=== PATIENT | female | born 1950 | race Caucasian/White ===

== ENCOUNTER → 2016-06-22 | Outpatient (CLI) | payer MEDICARE ==
[2016-06-03 11:00] VITALS: BP 170/91
[~2016-06-22] MED LIST: AMOX1TAB61 PO; FLUT1DIS5 IH; GUAI5SYR PO; IPRA4AER IH; LINE600T PO
--- NOTE | 2016-06-22 12:04 | RAD ---
Indication follow-up pneumonia. PA and lateral views of the chest were obtained. Comparison is made to an examination 06/01/2016. Previously demonstrated infiltrate in the left lower lobe, compatible with pneumonia, has improved substantially. Some modest residual volume loss persists but a new finding in the chest is not seen. The right lung is clear. The heart and pulmonary vessels are normal. There is no pleural fluid or pneumothorax. There are degenerative changes in the thoracic spine. IMPRESSION: Partial clearing of infiltrate, compatible with pneumonia, seen previously in the left lower lobe.
== END | disposition home or self-care (01) ==
LOC: RAD 11:05
PROVIDERS: ATTEND Internal Medicine Critical Care Medicine
DX: J18.9 Pneumonia, unspecified organism (principal)
CPT/HCPCS: 71020

== ENCOUNTER 2017-03-20 22:48 | Inpatient (IN) | payer BC ==
[~2017-03-20] VITALS: Ht 157.5 cm; Wt 113.0 kg
--- NOTE | 2017-03-20 23:01 | PHYS DOC ---
Past Medical History Past Medical History: Endometriosis Past Surgical History: Other Additional Past Surgical Histo: tumor removed from arm, tumor removed from neck , endometriosis ablation Alcohol Use: Rarely Drug Use: None Adult General Chief Complaint Chief Complaint: SHORTNESS OF BREATH HPI HPI 66-year-old female with history of COPD presenting to the emergency department today with shortness of breath. She has had shortness of breath over the past 24 -48 hours. She reports recently having her flu vaccine. Her shortness of breath has progressively gotten worse. Tonight her noticed she was having a difficult time breathing and brought her in for further evaluation. Worse with exertion. Alleviated with rest. She denies hemoptysis, unilateral leg swelling, recent immobilization or surgery. She denies chest pain. She denies headache. Review of systems is negative for trauma pain nausea vomiting diaphoresis. Positive for shortness of breath and dry nonproductive cough. All other review of systems is negative unless otherwise noted in history of present illness. ED course: 66-year-old female presenting with shortness of breath. In triage patient was noticed to be tachycardic and hypoxic. She was placed on nasal cannula. IV established. On pertinent examination the patient has wheezing bilaterally with prolonged respiratory phase. The patient was administered IV corticosteroids. Also duo neb was given. Blood work obtained along with EKG and chest x-ray. EKG reviewed by myself shows sinus rhythm with a tachycardic rate. ST segments congruent. Not suggestive of ACS. Chest x-ray reviewed by myself and compared to previous on June 222016. No obvious infiltrate or pneumothorax. Blood work obtained and reviewed. Patient was given IV fluids which improved her tachycardia. CT angiogram negative for acute pulmonary embolus him. Likely COPD exacerbation. Patient admitted to the hospital for hypoxia for further evaluation workup and care to Dr. dunn.I have assessed this patient clinically and believe that their condition requires an admission to the hospital. After consulting the admitting physician about this case, they have asked that I admit this patient to their service as an inpatient based on the clinical presentation and my impression. Review of Systems Review of Systems SEE ABOVE. Current Medications Current Medications Current Medications Medications (Trade) Dose Ordered Sig/Laxmi Start Time Stop Time Status Last Admin Dose Admin Albuterol/ Ipratropium (Duoneb) 3 ml 1X ONCE 03/20/17 23:30 03/20/17 23:31 DC 03/20/17 22:59 3 ML Info (Do NOT chart on this entry -- for MONITORING) 1 each PRN DAILY PRN 03/20/17 23:45 03/22/17 23:44 Iohexol (Omnipaque 300 Mg/ml) 60 ml 1X ONCE 03/21/17 00:30 03/21/17 00:31 DC 03/21/17 00:17 60 ML Labetalol HCl (Normodyne) 20 mg 1X ONCE 03/21/17 01:00 03/21/17 01:01 DC 03/21/17 00:55 20 MG Methylprednisolone Sodium Succinate (SOLU-Medrol 125MG VIAL) 125 mg 1X ONCE 03/20/17 23:30 03/20/17 23:31 DC 03/20/17 23:27 125 MG Sodium Chloride 1,000 ml @ 100 mls/hr Q10H 03/21/17 01:33 03/22/17 01:32 03/21/17 03:32 100 MLS/HR Allergies Allergies Allergies Coded Allergies Type Severity Reaction Last Updated Verified Sulfa (Sulfonamide Antibiotics) Allergy Intermediate 05/31/16 Yes acetaminophen Allergy Intermediate 05/31/16 Yes hydrocodone Allergy Intermediate Makes her itch 05/31/16 Yes Physical Exam Physical Exam SEE ABOVE Constitutional: Well developed, well nourished, mild increased work of breathing. nontoxic. alert and responsive. HENT: Normocephalic, atraumatic, bilateral external ears normal, oropharynx moist, nose normal. [] Eyes: PERRLA, EOMI, conjunctiva normal, no discharge. [] Neck: Normal range of motion, no tenderness, supple, no stridor. [] Cardiovascular:Heart rate regular rhythm, no murmur [] Lungs & Thorax: SEE ABOVE Abdomen: Bowel sounds normal, soft, no tenderness, no masses, no pulsatile masses. [] Skin: Warm, dry, no erythema, no rash. [] Back: No tenderness, no CVA tenderness. [] Extremities: No tenderness, no cyanosis, no clubbing, ROM intact, no edema. [] Neurologic: Alert and oriented X 3, normal motor function, normal sensory function, no focal deficits noted. [] Psychologic: Affect normal, judgement normal, mood normal. [] Current Patient Data Vital Signs Vital Signs Date Time Temp Pulse Resp B/P (MAP) Pulse Ox O2 Delivery O2 Flow Rate FiO2 03/21/17 00:55 109 210/77 03/20/17 23:00 96 Nasal Cannula 3.0 03/20/17 22:54 98.6 24 98.6 Lab Values Laboratory Tests Test 03/20/17 23:00 White Blood Count 11.3 x10^3/uL (4.0-11.0) H Red Blood Count 4.72 x10^6/uL (3.50-5.40) Hemoglobin 14.9 g/dL (12.0-15.5) Hematocrit 45.2 % (36.0-47.0) Mean Corpuscular Volume 96 fL (79-100) Mean Corpuscular Hemoglobin 32 pg (25-35) Mean Corpuscular Hemoglobin Concent 33 g/dL (31-37) Red Cell Distribution Width 12.9 % (11.5-14.5) Platelet Count 258 x10^3/uL (140-400) Neutrophils (%) (Auto) 95 % (31-73) H Lymphocytes (%) (Auto) 3 % (24-48) L Monocytes (%) (Auto) 2 % (0-9) Eosinophils (%) (Auto) 0 % (0-3) Basophils (%) (Auto) 0 % (0-3) Neutrophils # (Auto) 10.7 x10^3uL (1.8-7.7) H Lymphocytes # (Auto) 0.3 x10^3/uL (1.0-4.8) L Monocytes # (Auto) 0.2 x10^3/uL (0.0-1.1) Eosinophils # (Auto) 0.0 x10^3/uL (0.0-0.7) Basophils # (Auto) 0.0 x10^3/uL (0.0-0.2) Segmented Neutrophils % 83 % (35-66) H Band Neutrophils % 14 % (0-9) H Lymphocytes % 1 % (24-48) L Monocytes % 1 % (0-10) Eosinophils % 1 % (0-5) Platelet Estimate Adequate (ADEQUATE) Sodium Level 139 mmol/L (136-145) Potassium Level 3.7 mmol/L (3.5-5.1) Chloride Level 101 mmol/L (98-107) Carbon Dioxide Level 29 mmol/L (21-32) Anion Gap 9 (6-14) Blood Urea Nitrogen 20 mg/dL (7-20) Creatinine 1.0 mg/dL (0.6-1.0) Estimated GFR (Cockcroft-Gault) 55.6 Glucose Level 165 mg/dL (70-99) H Lactic Acid Level 1.7 mmol/L (0.4-2.0) Calcium Level 9.0 mg/dL (8.5-10.1) Total Bilirubin 0.4 mg/dL (0.2-1.0) Direct Bilirubin 0.1 mg/dL (0.0-0.2) Aspartate Amino Transferase (AST) 23 U/L (15-37) Alanine Aminotransferase (ALT) 26 U/L (14-59) Alkaline Phosphatase 86 U/L (46-116) Troponin I Quantitative < 0.017 ng/mL (0.000-0.055) WH-Fdu-F-Type Natriuretic Peptide 105 pg/mL (0-124) Total Protein 7.2 g/dL (6.4-8.2) Albumin 3.8 g/dL (3.4-5.0) Lipase 357 U/L (73-393) Laboratory Tests 03/20/17 23:00 Laboratory Tests 03/20/17 23:00 EKG EKG [] Radiology/Procedures Radiology/Procedures [] Course & Med Decision Making Course & Med Decision Making Pertinent Labs and Imaging studies reviewed. (See chart for details) [] Dragon Disclaimer Dragon Disclaimer This electronic medical record was generated, in whole or in part, using a voice recognition dictation system. Departure Departure Impression: Primary Impression: Hypoxia Additional Impressions: Tachycardia COPD exacerbation Disposition: ADMITTED INPATIENT Admitting Physician: Deepthi Dunn Condition: STABLE Referrals: JANINA RODRIGUEZ MD (PCP) Problem Qualifiers AMBERLY LOPEZ MD Mar 20, 2017 23:01
[2017-03-20 23:14] LABS: BASO % 0 % (0-3); EOS % 0 % (0-3); HEMATOCRIT 45.2 % (36.0-47.0); HEMOGLOBIN 14.9 g/dL (12.0-15.5); LYMPH # 0.3 x10^3/uL (1.0-4.8); LYMPH % 3 % (24-48); MEAN CORPUSCULAR HEMOGLOBIN 32 pg (25-35); MEAN CORPUSCULAR HGB CONC 33 g/dL (31-37); MEAN CORPUSCULAR VOLUME 96 fL (79-100); MONO % 2 % (0-9); NEUT % 95 % (31-73); PLATELET COUNT 258 x10^3/uL (140-400); RED BLOOD COUNT 4.72 x10^6/uL (3.50-5.40); RED CELL DISTRIBUTION WIDTH 12.9 % (11.5-14.5); WHITE BLOOD COUNT 11.3 x10^3/uL (4.0-11.0)
[2017-03-20 23:21] LABS: GFR 55.6; POTASSIUM 3.7 mmol/L (3.5-5.1)
[2017-03-20 23:27] LABS: ALBUMIN 3.8 g/dL (3.4-5.0); DIRECT BILIRUBIN 0.1 mg/dL (0.0-0.2); TOTAL BILIRUBIN 0.4 mg/dL (0.2-1.0); TOTAL PROTEIN 7.2 g/dL (6.4-8.2)
[2017-03-20] MEDS ORDERED: methylPREDNISolone SOD SUCC PF 125 MG/2 ML VIAL. IV ONE (23:30)
[2017-03-20] MEDS ORDERED: IPRATRPIUM/ALBUTEROL 0.5/2.5MG 3 ML NEBU. NEB ONE (23:30)
[2017-03-20] MEDS ORDERED: IV NORMAL SALINE 500ML BAG 500 ML IV ONE ×2 (23:30→23:45)
[2017-03-20] MEDS ORDERED: CONTRAST GIVEN MC PRN (23:45)
[2017-03-21] MEDS ORDERED: IOHEXOL 300 MG/ML 100ML VIAL. IV ONE (00:30)
[2017-03-21 00:31] LABS: % EOS 1 % (0-5)
[2017-03-21 00:32] LABS: PLT ESTIMATE ADEQUATE (ADEQUATE)
--- NOTE | 2017-03-21 00:57 | EKG ---
[facility] [address] [place] [address] Test Date: 2017-03-20 Test Time: 23:00:32 Pat Name: LAURO SCHULTZ Department: Room: Gender: F Story Analyst: : 1950 Requested By: AMBERLY LOPEZ Order Number: [id number] Reading MD: Rahul Harrison Measurements Intervals [place] Rate: 117 P: 90 [place]: 132 QRS: 65 QRSD: 80 T: 34 QT: 320 QTc: 451 Interpretive Statements SINUS TACHYCARDIA QRS(T) CONTOUR ABNORMALITY CONSIDER ANTEROSEPTAL MYOCARDIAL DAMAGE POSSIBLY ABNORMAL ECG Electronically Signed On 03-27-2017 14:30:49 FEED PREPARATION OPERATOR by Rahul Harrison
[2017-03-21] MEDS ORDERED: LABETALOL 20 MG/4 ML DISP.SYRIN. IVP ONE (01:00)
--- NOTE | 2017-03-21 01:17 | RAD ---
INDICATION: EVAL FOR PE, SHORT OF BREATH COMPARISON: None. TECHNIQUE: Axial CT images obtained through the chest. Intravenous contrast utilized. Angiogram 3D images processed per protocol. One or more of the following individualized dose reduction techniques were utilized for this examination: 1. Automated exposure control; 2. Adjustment of the mA and/or kV according to patient size; 3. Use of iterative reconstruction technique. FINDINGS: Linear opacity left lung, could be atelectasis or scarring. There are couple of sub-4 mm right lung pulmonary nodules. No evidence of pneumothorax. Mild bronchiectasis. Mild peribronchial thickening in portion of lung. Partially visualized liver appears prominent in size. Partially visualized masslike structure in the left renal region versus dysmorphic appearance of the left kidney. Structure measures up to 52 mm but only partially seen. Mild to moderate calcific atherosclerosis. Portion of ascending thoracic aorta is obscured by motion but no definite aneurysm or dissection flap seen in visualized portions of aorta. Mild a prominent lymph node precarinal region measuring up to 11 mm short axis. Degenerative changes the spine. No embolus in the main pulmonary arteries. Limited peripherally. IMPRESSION: 1. No central pulmonary embolus. 2. There are some sub-4 mm pulmonary nodules. There are also some borderline enlarged mediastinal and hilar lymph nodes. Follow-up CT could be obtained in a few months to ensure no growth 3. Mild peribronchial thickening. Cannot exclude causes such as bronchitis. 4. At partially visualized abdomen and there is either dysmorphic changes the left kidney or a mass within the region partially visualized. Nonemergent CT, MRI or ultrasound renal protocol should be obtained to further evaluate for a mass in the area. Electronically signed by: Panchito Molina MD (03/21/2017 1:14 AM) [id number]
[2017-03-21] MEDS ORDERED: ONDANSETRON PF 4 MG/2 ML VIAL. IV PRN ×2 (01:45→09:15)
[2017-03-21 03:11] LABS: BILIRUBIN,URINE NEGATIVE (NEG); GLUCOSE,URINE NEGATIVE (NEG); NITRITE,URINE NEGATIVE (NEG); PH,URINE 5.5; PROTEIN,URINE NEGATIVE (NEG-TRACE); UROBILINOGEN,URINE 0.2 mg/dL (0.2 mg/dL)
[2017-03-21 03:23] LABS: BACTERIA,URINE FEW /HPF (0-FEW); RBC,URINE OCC /HPF (0-2); SQUAMOUS EPITHELIAL CELL,UR FEW /LPF
[2017-03-21 03:31] VITALS: BP 135/60
[2017-03-21] MEDS: IV NORMAL SALINE 1000ML BAG 1,000 ML IV SCH ×2 (03:32→11:33)
[2017-03-21] MEDS ORDERED: IBUPROFEN 400 MG TABLET. PO PRN (06:00)
[2017-03-21 07:30] VITALS: BP 142/69
--- NOTE | 2017-03-21 07:32 | RAD ---
Chest x-ray Indication: Shortness of breath for 2 weeks. Technique: Portable AP upright chest x-ray Comparison: 06/22/2016 Findings: Heart is normal in size. Lungs are clear. No pneumothorax or pleural effusion. Visualized bony thorax is within normal limits. Degenerative changes in the thoracic spine. Impression: No acute cardiopulmonary process.
[2017-03-21] MEDS: IPRATRPIUM/ALBUTEROL 0.5/2.5MG 3 ML NEBU. NEB SCH ×2 (07:42→11:26)
[2017-03-21] MEDS ORDERED: LABETALOL 20 MG/4 ML DISP.SYRIN. IVP PRN (09:15)
[2017-03-21] MEDS ORDERED: IBUPROFEN 600 MG TABLET. PO PRN (09:15)
[2017-03-21] MEDS ORDERED: guaiFENesin DM 200MG/20MG 10 ML SYRUP PO PRN (09:15)
[2017-03-21 10:30] VITALS: BP 150/52
--- NOTE | 2017-03-21 11:35 | PDOC ---
Provider Note Provider Note dictated TEETEE GIRLADO MD Mar 21, 2017 11:35
[2017-03-21] MEDS ORDERED: DOXY100C2 PO (11:38)
[2017-03-21] MEDS ORDERED: BENZ100C PO (11:38)
[2017-03-21] MEDS ORDERED: METH4TAB2 PO (11:38)
[2017-03-21] MEDS ORDERED: cefTRIAXone IM 1 GM VIAL IM ONE (11:45)
--- NOTE | 2017-03-21 11:48 | PDOC1 ---
History and Physical Date of Admission Date of Admission DATE: 03/21/17 TIME: 11:39 Identification/Chief Complaint Chief Complaint cough, soa Problems: Source Source: Caregiver, Chart review, Patient History of Present Illness History of Present Illness 66 y/o female smoker, who is down to 4 cigs/half a pack a day,3 mos cough but lately change in phlegm, also was soa, "stopped breathing" per last night so went to ER, AT ER,tachy, hypoxic, met sepsis criteria, CXR and cT chest done showed 4 mm RT pulm nodule, was there in 05/2016 when she was here for pNA needing NIPPV. SHe did not need bIPAP this admit., Feels better on day 1 admit, WBC 11.3. Off home O2, was dccd on HH and O2 that time, Just takes centrum at home Past Medical History Cardiovascular: No pertinent hx Pulmonary: No pertinent hx Heme/Onc: No pertinent hx Hepatobiliary: No pertinent hx Psych: No pertinent hx Musculoskeletal: low back pain Rheumatologic: No pertinent hx Infectious disease: No pertinent hx Renal/: No pertinent hx Past Surgical History Past Surgical History: No pertinent history Family History Family History: No Significant Social History Smoke: <1 pack per day ALCOHOL: none Drugs: None Current Problem List Problem List Problems Medical Problems: (1) COPD exacerbation Status: Acute (2) Hypoxia Status: Acute (3) Tachycardia Status: Acute Problems: Current Medications Current Medications Current Medications Albuterol/ Ipratropium (Duoneb) 3 ml 1X ONCE NEB Last administered on 22:59; Start 03/20/17 at 23:30; Stop 03/20/17 at 23:31; Status DC Methylprednisolone Sodium Succinate (SOLU-Medrol 125MG VIAL) 125 mg 1X ONCE IV Last administered on 03/20/17 23:27; Start 03/20/17 at 23:30; Stop at 23:31; Status DC Sodium Chloride 500 ml @ 500 mls/hr 1X ONCE IV Last administered on 23:27; Start 03/20/17 at 23:30; Stop 03/21/17 at 00:29; Status DC Sodium Chloride 500 ml @ 500 mls/hr 1X ONCE IV Last administered on 23:49; Start 03/20/17 at 23:45; Stop 03/21/17 at 00:44; Status DC Iohexol (Omnipaque 300 Mg/ml) 60 ml 1X ONCE IV Last administered on 00:17; Start 03/21/17 at 00:30; Stop 03/21/17 at 00:31; Status DC Info (Do NOT chart on this entry -- for MONITORING) 1 each PRN DAILY PRN MC SEE COMMENTS; Start 03/20/17 at 23:45; Stop 03/22/17 at 23:44 Labetalol HCl (Normodyne) 20 mg 1X ONCE IVP Last administered on 03/21/17 00 :55; Start 03/21/17 at 01:00; Stop 03/21/17 at 01:01; Status DC Ondansetron HCl (Zofran) 4 mg PRN Q8HRS PRN IV NAUSEA/VOMITING; Start at 01:45; Stop 03/21/17 at 09:09; Status DC Sodium Chloride 1,000 ml @ 100 mls/hr Q10H IV Last administered on 03/21/17 03:32; Start 03/21/17 at 01:33; Stop 03/22/17 at 01:32 Albuterol/ Ipratropium (Duoneb) 3 ml RTQID NEB Last administered on 03/21/17 11:26; Start 03/21/17 at 08:00; Stop 03/22/17 at 07:59 Ibuprofen (Motrin) 400 mg PRN Q6HRS PRN PO INFLAMMATION Last administered on 06:26; Start 03/21/17 at 06:00 Ondansetron HCl (Zofran) 4 mg PRN Q6HRS PRN IV NAUSEA/VOMITING; Start at 09:15; Stop 03/22/17 at 09:14 Ibuprofen (Motrin) 600 mg PRN Q6HRS PRN PO INFLAMMATION; Start 03/21/17 at 09: 15 Guaifenesin (Robitussin Dm) 10 ml PRN Q6HRS PRN PO COUGH; Start 03/21/17 at 09 :15 Labetalol HCl (Normodyne) 10 mg PRN Q2HR PRN IVP HYPERTENSION, SEE COMMENTS; Start 03/21/17 at 09:15 Doxycycline Hyclate (Vibra-Tab) 100 mg BID PO ; Start 03/21/17 at 12:00 Ceftriaxone Sodium (Rocephin Im) 1 gm 1X ONCE IM ; Start 03/21/17 at 11:45; Stop 03/21/17 at 11:46; Status UNV Active Scripts Active Allergies Allergies: Coded Allergies: Sulfa (Sulfonamide Antibiotics) (Verified Allergy, Intermediate, 05/31/16) acetaminophen (Verified Allergy, Intermediate, 05/31/16) hydrocodone (Verified Allergy, Intermediate, Makes her itch, 05/31/16) ROS General: YES: Chills PSYCHOLOGICAL ROS: No: Anxiety, Behavioral Disorder, Concentration difficultie , Decreased libido, Depression, Disorientation, Hallucinations, Hostility, Irritablity, Memory difficulties, Mood Swings, Obsessive thoughts, Physical abuse, Sexual abuse, Sleep disturbances, Suicidal ideation, Other Eyes: No Blurry vision, No Decreased vision, No Double vision, No Dry eyes, No Excessive tearing, No Eye Pain, No Itchy Eyes, No Loss of vision, No Photophobia , No Scotomata, No Uses contacts, No Uses glasses, No Other HEENT: No: Heacaches, Visual Changes, Hearing change, Nasal congestion, Nasal discharge, Oral lesions, Sinus pain, Sore Throat, Epistaxis, Sneezing, Snoring, Tinnitus, Vertigo, Vocal changes, Other ALLERGY AND IMMUNOLOGY: No: Hives, Insect Bite Sensitivity, Itchy/Watery Eyes, Nasal Congestion, Post Nasal Drip, Seasonal Allergies, Other Hematological and Lymphatic: No: Bleeding Problems, Blood Clots, Blood Transfusions, Brusing, Night Sweats, Pallor, Swollen Lymph Nodes, Other ENDOCRINE: No: Breast Changes, Galactorrhea, Hair Pattern Changes, Hot Flashes , Malaise/lethargy, Mood Swings, Palpitations, Polydipsia/polyuria, Skin Changes , Temperature Intolerance, Unexpected Weight Changes, Other Breast: No New/Changing Breast Lumps, No Nipple changes, No Nipple discharge, No Other Respiratory: YES: Cough, Shortness of breath, SOB with excertion, Sputum Changes Cardiovascular: No Chest Pain, No Palpitations, No Orthopnea, No Paroxysmal Noc. Dyspnea, No Edema, No Lt Headedness, No Other Gastrointestinal: No Nausea, No Vomiting, No Abdominal Pain, No Diarrhea, No Constipation, No Melena, No Hematochezia, No Other Genitourinary: No Dysuria, No Frequency, No Incontinence, No Hematuria, No Retention, No Discharge, No Urgency, No Pain, No Flank Pain, No Other, No , No , No , No , No , No , No Musculoskeletal: No Gait Disturbance, No Joint Pain, No Joint Stiffness, No Joint Swelling, No Muscle Pain, No Muscular Weakness, No Pain In:, No Swelling In:, No Other Neurological: No Behavorial Changes, No Bowel/Bladder ControlChng, No Confusion , No Dizziness, No Gait Disturbance, No Headaches, No Impaired Coord/balance, No Memory Loss, No Numbness/Tingling, No Seizures, No Speech Problems, No Tremors, No Visual Changes, No Weakness, No Other Skin: No Dry Skin, No Eczema, No Hair Changes, No Lumps, No Mole Changes, No Mottling, No Nail Changes, No Pruritus, No Rash, No Skin Lesion Changes, No Other, No Acne Physical Exam General: Alert, Oriented X3, Cooperative, No acute distress HEENT: Atraumatic, PERRLA, EOMI Lungs: Clear to auscultation, Normal air movement Heart: S1S2, RRR, no thrills, no rubs, no gallops, no murmurs Cardiovascular: S1, S2 Breasts: Normal, Rt breast nml w/o mass, Lt breast nml w/o mass, Nipples normal Abdomen: Normal bowel sounds, Soft, No tenderness, No hepatosplenomegaly, No masses Rectal Exam: not examined PELVIC: Nml ext genitalia Extremities: No clubbing, No cyanosis, No edema, Normal pulses, No tenderness/ swelling Skin: No rashes, No breakdown, No significant lesion Neuro: Normal gait, Normal speech, Strength at 5/5 X4 ext, Normal tone, Sensation intact, Cranial nerves 3-12 NL, Reflexes 2+ Psych/Mental Status: Mental status NL, Mood NL Vitals Vitals Vital Signs Date Time Temp Pulse Resp B/P (MAP) Pulse Ox O2 Delivery O2 Flow Rate FiO2 03/21/17 11:28 Nasal Cannula 3.0 03/21/17 07:44 95 03/21/17 07:30 97.5 88 18 142/69 (93) 97.5 Labs Labs Laboratory Tests Test 03/20/17 23:00 03/21/17 03:00 03/21/17 07:25 White Blood Count 11.3 x10^3/uL (4.0-11.0) Red Blood Count 4.72 x10^6/uL (3.50-5.40) Hemoglobin 14.9 g/dL (12.0-15.5) Hematocrit 45.2 % (36.0-47.0) Mean Corpuscular Volume 96 fL (79-100) Mean Corpuscular Hemoglobin 32 pg (25-35) Mean Corpuscular Hemoglobin Concent 33 g/dL (31-37) Red Cell Distribution Width 12.9 % (11.5-14.5) Platelet Count 258 x10^3/uL (140-400) Neutrophils (%) (Auto) 95 % (31-73) Lymphocytes (%) (Auto) 3 % (24-48) Monocytes (%) (Auto) 2 % (0-9) Eosinophils (%) (Auto) 0 % (0-3) Basophils (%) (Auto) 0 % (0-3) Neutrophils # (Auto) 10.7 x10^3uL (1.8-7.7) Lymphocytes # (Auto) 0.3 x10^3/uL (1.0-4.8) Monocytes # (Auto) 0.2 x10^3/uL (0.0-1.1) Eosinophils # (Auto) 0.0 x10^3/uL (0.0-0.7) Basophils # (Auto) 0.0 x10^3/uL (0.0-0.2) Segmented Neutrophils % 83 % (35-66) Band Neutrophils % 14 % (0-9) Lymphocytes % 1 % (24-48) Monocytes % 1 % (0-10) Eosinophils % 1 % (0-5) Platelet Estimate Adequate (ADEQUATE) Sodium Level 139 mmol/L (136-145) Potassium Level 3.7 mmol/L (3.5-5.1) Chloride Level 101 mmol/L (98-107) Carbon Dioxide Level 29 mmol/L (21-32) Anion Gap 9 (6-14) Blood Urea Nitrogen 20 mg/dL (7-20) Creatinine 1.0 mg/dL (0.6-1.0) Estimated GFR (Cockcroft-Gault) 55.6 Glucose Level 165 mg/dL (70-99) Lactic Acid Level 1.7 mmol/L (0.4-2.0) Calcium Level 9.0 mg/dL (8.5-10.1) Total Bilirubin 0.4 mg/dL (0.2-1.0) Direct Bilirubin 0.1 mg/dL (0.0-0.2) Aspartate Amino Transf (AST/SGOT) 23 U/L (15-37) Alanine Aminotransferase (ALT/SGPT) 26 U/L (14-59) Alkaline Phosphatase 86 U/L (46-116) Troponin I Quantitative < 0.017 ng/mL (0.000-0.055) < 0.017 ng/mL (0.000-0.055) TX-Dvp-J-Type Natriuretic Peptide 105 pg/mL (0-124) Total Protein 7.2 g/dL (6.4-8.2) Albumin 3.8 g/dL (3.4-5.0) Lipase 357 U/L (73-393) Urine Collection Type Unknown Urine Color Yellow Urine Clarity Clear Urine pH 5.5 Urine Specific [place] >=1.030 Urine Protein Negative mg/dL (NEG-TRACE) Urine Glucose (UA) Negative mg/dL (NEG) Urine Ketones (Stick) Negative mg/dL (NEG) Urine Blood Negative (NEG) Urine Nitrite Negative (NEG) Urine Bilirubin Negative (NEG) Urine Urobilinogen Dipstick 0.2 mg/dL (0.2 mg/dL) Urine Leukocyte Esterase Trace (NEG) Urine RBC Occ /HPF (0-2) Urine WBC 5-10 /HPF (0-4) Urine Squamous Epithelial Cells Few /LPF Urine Bacteria Few /HPF (0-FEW) Urine Hyaline Casts Few /HPF Urine Mucus Mod /LPF Laboratory Tests Test 03/20/17 23:00 03/21/17 03:00 03/21/17 07:25 White Blood Count 11.3 x10^3/uL (4.0-11.0) Red Blood Count 4.72 x10^6/uL (3.50-5.40) Hemoglobin 14.9 g/dL (12.0-15.5) Hematocrit 45.2 % (36.0-47.0) Mean Corpuscular Volume 96 fL (79-100) Mean Corpuscular Hemoglobin 32 pg (25-35) Mean Corpuscular Hemoglobin Concent 33 g/dL (31-37) Red Cell Distribution Width 12.9 % (11.5-14.5) Platelet Count 258 x10^3/uL (140-400) Neutrophils (%) (Auto) 95 % (31-73) Lymphocytes (%) (Auto) 3 % (24-48) Monocytes (%) (Auto) 2 % (0-9) Eosinophils (%) (Auto) 0 % (0-3) Basophils (%) (Auto) 0 % (0-3) Neutrophils # (Auto) 10.7 x10^3uL (1.8-7.7) Lymphocytes # (Auto) 0.3 x10^3/uL (1.0-4.8) Monocytes # (Auto) 0.2 x10^3/uL (0.0-1.1) Eosinophils # (Auto) 0.0 x10^3/uL (0.0-0.7) Basophils # (Auto) 0.0 x10^3/uL (0.0-0.2) Segmented Neutrophils % 83 % (35-66) Band Neutrophils % 14 % (0-9) Lymphocytes % 1 % (24-48) Monocytes % 1 % (0-10) Eosinophils % 1 % (0-5) Platelet Estimate Adequate (ADEQUATE) Sodium Level 139 mmol/L (136-145) Potassium Level 3.7 mmol/L (3.5-5.1) Chloride Level 101 mmol/L (98-107) Carbon Dioxide Level 29 mmol/L (21-32) Anion Gap 9 (6-14) Blood Urea Nitrogen 20 mg/dL (7-20) Creatinine 1.0 mg/dL (0.6-1.0) Estimated GFR (Cockcroft-Gault) 55.6 Glucose Level 165 mg/dL (70-99) Lactic Acid Level 1.7 mmol/L (0.4-2.0) Calcium Level 9.0 mg/dL (8.5-10.1) Total Bilirubin 0.4 mg/dL (0.2-1.0) Direct Bilirubin 0.1 mg/dL (0.0-0.2) Aspartate Amino Transf (AST/SGOT) 23 U/L (15-37) Alanine Aminotransferase (ALT/SGPT) 26 U/L (14-59) Alkaline Phosphatase 86 U/L (46-116) Troponin I Quantitative < 0.017 ng/mL (0.000-0.055) < 0.017 ng/mL (0.000-0.055) SQ-Jou-C-Type Natriuretic Peptide 105 pg/mL (0-124) Total Protein 7.2 g/dL (6.4-8.2) Albumin 3.8 g/dL (3.4-5.0) Lipase 357 U/L (73-393) Urine Collection Type Unknown Urine Color Yellow Urine Clarity Clear Urine pH 5.5 Urine Specific [place] >=1.030 Urine Protein Negative mg/dL (NEG-TRACE) Urine Glucose (UA) Negative mg/dL (NEG) Urine Ketones (Stick) Negative mg/dL (NEG) Urine Blood Negative (NEG) Urine Nitrite Negative (NEG) Urine Bilirubin Negative (NEG) Urine Urobilinogen Dipstick 0.2 mg/dL (0.2 mg/dL) Urine Leukocyte Esterase Trace (NEG) Urine RBC Occ /HPF (0-2) Urine WBC 5-10 /HPF (0-4) Urine Squamous Epithelial Cells Few /LPF Urine Bacteria Few /HPF (0-FEW) Urine Hyaline Casts Few /HPF Urine Mucus Mod /LPF VTE Prophylaxis Ordered VTE Prophylaxis Devices: Yes VTE Pharmacological Prophylaxi: Yes Assessment/Plan Assessment/Plan 1. Acute bronchitis, POA, sepsis POA,no organ dysfcn 2, SMoker 3,.4 mm RT lung nodule PLAN: doxy PO IM rocpehin x 1 MEdrol dose pack Quit smoking CT chest ff up 6 mos for tyhe sub cm nodule Kyrie Quiroz,. JESSICA Truong MD Mar 21, 2017 11:48
--- NOTE | 2017-03-21 11:49 | PDOC3 ---
Discharge Summary Visit Information Date of Admission: Mar 20, 2017 Date of Discharge: Mar 21, 2017 Admitting Diagnosis Comment: 1. Acute bronchitis, POA, sepsis POA,no organ dysfcn 2, SMoker 3,.4 mm RT lung nodule PLAN: doxy PO IM rocpehin x 1 MEdrol dose pack Quit smoking CT chest ff up 6 mos for tyhe sub cm nodule Kyrie Quiroz,. Tahir Final Diagnosis Problems Medical Problems: (1) COPD exacerbation Status: Acute (2) Hypoxia Status: Acute (3) Tachycardia Status: Acute Brief Hospital Course Allergies Allergies Coded Allergies Type Severity Reaction Last Updated Verified Sulfa (Sulfonamide Antibiotics) Allergy Intermediate 05/31/16 Yes acetaminophen Allergy Intermediate 05/31/16 Yes hydrocodone Allergy Intermediate Makes her itch 05/31/16 Yes Vital Signs Vital Signs Date Time Temp Pulse Resp B/P (MAP) Pulse Ox O2 Delivery O2 Flow Rate FiO2 03/21/17 11:28 Nasal Cannula 3.0 03/21/17 07:44 95 03/21/17 07:30 97.5 88 18 142/69 (93) 97.5 Lab Results Laboratory Tests Test 03/20/17 23:00 03/21/17 03:00 03/21/17 07:25 White Blood Count 11.3 x10^3/uL (4.0-11.0) Red Blood Count 4.72 x10^6/uL (3.50-5.40) Hemoglobin 14.9 g/dL (12.0-15.5) Hematocrit 45.2 % (36.0-47.0) Mean Corpuscular Volume 96 fL (79-100) Mean Corpuscular Hemoglobin 32 pg (25-35) Mean Corpuscular Hemoglobin Concent 33 g/dL (31-37) Red Cell Distribution Width 12.9 % (11.5-14.5) Platelet Count 258 x10^3/uL (140-400) Neutrophils (%) (Auto) 95 % (31-73) Lymphocytes (%) (Auto) 3 % (24-48) Monocytes (%) (Auto) 2 % (0-9) Eosinophils (%) (Auto) 0 % (0-3) Basophils (%) (Auto) 0 % (0-3) Neutrophils # (Auto) 10.7 x10^3uL (1.8-7.7) Lymphocytes # (Auto) 0.3 x10^3/uL (1.0-4.8) Monocytes # (Auto) 0.2 x10^3/uL (0.0-1.1) Eosinophils # (Auto) 0.0 x10^3/uL (0.0-0.7) Basophils # (Auto) 0.0 x10^3/uL (0.0-0.2) Segmented Neutrophils % 83 % (35-66) Band Neutrophils % 14 % (0-9) Lymphocytes % 1 % (24-48) Monocytes % 1 % (0-10) Eosinophils % 1 % (0-5) Platelet Estimate Adequate (ADEQUATE) Sodium Level 139 mmol/L (136-145) Potassium Level 3.7 mmol/L (3.5-5.1) Chloride Level 101 mmol/L (98-107) Carbon Dioxide Level 29 mmol/L (21-32) Anion Gap 9 (6-14) Blood Urea Nitrogen 20 mg/dL (7-20) Creatinine 1.0 mg/dL (0.6-1.0) Estimated GFR (Cockcroft-Gault) 55.6 Glucose Level 165 mg/dL (70-99) Lactic Acid Level 1.7 mmol/L (0.4-2.0) Calcium Level 9.0 mg/dL (8.5-10.1) Total Bilirubin 0.4 mg/dL (0.2-1.0) Direct Bilirubin 0.1 mg/dL (0.0-0.2) Aspartate Amino Transf (AST/SGOT) 23 U/L (15-37) Alanine Aminotransferase (ALT/SGPT) 26 U/L (14-59) Alkaline Phosphatase 86 U/L (46-116) Troponin I Quantitative < 0.017 ng/mL (0.000-0.055) < 0.017 ng/mL (0.000-0.055) HT-Wes-G-Type Natriuretic Peptide 105 pg/mL (0-124) Total Protein 7.2 g/dL (6.4-8.2) Albumin 3.8 g/dL (3.4-5.0) Lipase 357 U/L (73-393) Urine Collection Type Unknown Urine Color Yellow Urine Clarity Clear Urine pH 5.5 Urine Specific [place] >=1.030 Urine Protein Negative mg/dL (NEG-TRACE) Urine Glucose (UA) Negative mg/dL (NEG) Urine Ketones (Stick) Negative mg/dL (NEG) Urine Blood Negative (NEG) Urine Nitrite Negative (NEG) Urine Bilirubin Negative (NEG) Urine Urobilinogen Dipstick 0.2 mg/dL (0.2 mg/dL) Urine Leukocyte Esterase Trace (NEG) Urine RBC Occ /HPF (0-2) Urine WBC 5-10 /HPF (0-4) Urine Squamous Epithelial Cells Few /LPF Urine Bacteria Few /HPF (0-FEW) Urine Hyaline Casts Few /HPF Urine Mucus Mod /LPF Laboratory Tests Test 03/20/17 23:00 03/21/17 03:00 03/21/17 07:25 White Blood Count 11.3 x10^3/uL (4.0-11.0) Red Blood Count 4.72 x10^6/uL (3.50-5.40) Hemoglobin 14.9 g/dL (12.0-15.5) Hematocrit 45.2 % (36.0-47.0) Mean Corpuscular Volume 96 fL (79-100) Mean Corpuscular Hemoglobin 32 pg (25-35) Mean Corpuscular Hemoglobin Concent 33 g/dL (31-37) Red Cell Distribution Width 12.9 % (11.5-14.5) Platelet Count 258 x10^3/uL (140-400) Neutrophils (%) (Auto) 95 % (31-73) Lymphocytes (%) (Auto) 3 % (24-48) Monocytes (%) (Auto) 2 % (0-9) Eosinophils (%) (Auto) 0 % (0-3) Basophils (%) (Auto) 0 % (0-3) Neutrophils # (Auto) 10.7 x10^3uL (1.8-7.7) Lymphocytes # (Auto) 0.3 x10^3/uL (1.0-4.8) Monocytes # (Auto) 0.2 x10^3/uL (0.0-1.1) Eosinophils # (Auto) 0.0 x10^3/uL (0.0-0.7) Basophils # (Auto) 0.0 x10^3/uL (0.0-0.2) Segmented Neutrophils % 83 % (35-66) Band Neutrophils % 14 % (0-9) Lymphocytes % 1 % (24-48) Monocytes % 1 % (0-10) Eosinophils % 1 % (0-5) Platelet Estimate Adequate (ADEQUATE) Sodium Level 139 mmol/L (136-145) Potassium Level 3.7 mmol/L (3.5-5.1) Chloride Level 101 mmol/L (98-107) Carbon Dioxide Level 29 mmol/L (21-32) Anion Gap 9 (6-14) Blood Urea Nitrogen 20 mg/dL (7-20) Creatinine 1.0 mg/dL (0.6-1.0) Estimated GFR (Cockcroft-Gault) 55.6 Glucose Level 165 mg/dL (70-99) Lactic Acid Level 1.7 mmol/L (0.4-2.0) Calcium Level 9.0 mg/dL (8.5-10.1) Total Bilirubin 0.4 mg/dL (0.2-1.0) Direct Bilirubin 0.1 mg/dL (0.0-0.2) Aspartate Amino Transf (AST/SGOT) 23 U/L (15-37) Alanine Aminotransferase (ALT/SGPT) 26 U/L (14-59) Alkaline Phosphatase 86 U/L (46-116) Troponin I Quantitative < 0.017 ng/mL (0.000-0.055) < 0.017 ng/mL (0.000-0.055) UW-Gdg-D-Type Natriuretic Peptide 105 pg/mL (0-124) Total Protein 7.2 g/dL (6.4-8.2) Albumin 3.8 g/dL (3.4-5.0) Lipase 357 U/L (73-393) Urine Collection Type Unknown Urine Color Yellow Urine Clarity Clear Urine pH 5.5 Urine Specific [place] >=1.030 Urine Protein Negative mg/dL (NEG-TRACE) Urine Glucose (UA) Negative mg/dL (NEG) Urine Ketones (Stick) Negative mg/dL (NEG) Urine Blood Negative (NEG) Urine Nitrite Negative (NEG) Urine Bilirubin Negative (NEG) Urine Urobilinogen Dipstick 0.2 mg/dL (0.2 mg/dL) Urine Leukocyte Esterase Trace (NEG) Urine RBC Occ /HPF (0-2) Urine WBC 5-10 /HPF (0-4) Urine Squamous Epithelial Cells Few /LPF Urine Bacteria Few /HPF (0-FEW) Urine Hyaline Casts Few /HPF Urine Mucus Mod /LPF Brief Hospital Course Ms. Torres is a 66 old [sex] who presented with [ ]66 y/o female smoker , who is down to 4 cigs/half a pack a day,3 mos cough but lately change in phlegm, also was soa, "stopped breathing" per last night so went to ER, AT ER,tachy, hypoxic, met sepsis criteria, CXR and cT chest done showed 4 mm RT pulm nodule, was there in 05/2016 when she was here for pNA needing NIPPV. SHe did not need bIPAP this admit., Feels better on day 1 admit, WBC 11.3. Off home O2, was dccd on HH and O2 that time, Just takes centrum at home COurse: cleared by pulmo to go home, IM reocpehin x 1 Dxy PO 100 BID MEdrol dose pack, tessalon perles, quit cigs Discharge Information Condition at Discharge: Improved, Stable Disposition/Orders: D/C to Home JESSICA MATA MD Mar 21, 2017 11:49
[2017-03-21] MEDS ORDERED: DOXYCYCLINE HYCLATE 100 MG TABLET PO SCH (12:00)
[2017-03-21 12:49] LABS: OBC FLU VALID
--- NOTE | 2017-03-21 12:52 | CONS ---
DATE OF CONSULTATION: PULMONARY CONSULTATION ATTENDING PHYSICIAN: Dr. Hugo. REASON FOR CONSULTATION: Dyspnea. HISTORY OF PRESENT ILLNESS: The patient is a 66-year-old female with history of COPD. Normally, she does not use oxygen. She has a cough with mucus production with different colors including jalloh, yellow and at times clear. This has been going on for 3 months. The patient states that she had a flu shot yesterday and within 3 hours of the flu shot, she started to have an increasing cough with some shortness of breath. said that she was gasping for air and had some tightness in the chest. As a result, she was brought into [facility] Emergency Room. She was noticed to be tachycardic and hypoxic. She was placed on oxygen at 3 liters. Her chest x-ray did not reveal any obvious infiltrates. As a result, she underwent a CT of the chest, which was also reviewed by me. There is no obvious pulmonary embolism. The patient had very tiny, few lung nodules, may be 3-4 mm in the right lung. There was minimal atelectasis, scarring in the left lung. The patient also had a ____ scan of the abdomen and there were some dysmorphic changes in the left kidney that were reported. She feels better. She is currently on oxygen at 2 liters. She still smokes half pack per day. She used to smoke 3 packs per day. The patient was given IV steroids and currently on bronchodilators. I have been asked to see her for further evaluation. PAST MEDICAL HISTORY: Significant for history of COPD, history of endometriosis. 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 ALLERGIES: SULFA, ACETAMINOPHEN AND HYDROCODONE. REVIEW OF SYSTEMS: Twelve-point system obtained. Pertinent positives discussed in my history of present illness, otherwise noncontributory. All systems that were negative were reviewed as well. SOCIAL HISTORY: Smoked for at least 35-40 years. She has been smoking since age 22. Used to smoke 3 packs per day, now down to half pack per day. PHYSICAL EXAMINATION: GENERAL: She is awake, following commands. VITAL SIGNS: Pulse ox is 95% on 3 liters. She is afebrile. HEENT: Sclerae nonicteric. NECK: Supple. LUNGS: Clear. No wheezing. CARDIOVASCULAR: Regular rate. ABDOMEN: Soft, obese. EXTREMITIES: With no pitting edema. LABORATORY DATA: Reviewed. White cell count 11.3, hemoglobin 14.9 and platelets are 258. BUN 20, creatinine 1.0. IMPRESSION: 1. Dyspnea with acute hypoxic respiratory failure secondary to acute exacerbation of chronic obstructive pulmonary disease and probably triggered by influenza vaccine. 2. Abnormal CT chest with tiny 3-4 mm lung nodule seen on the right lung. This is of much less clinical significance at this point and I would recommend repeating a CT chest in 6 months. 3. History of cough with mucus production with on and off yellow to jalloh color. This is secondary to chronic bronchitis in a patient who has been a smoker since age 22. RECOMMENDATIONS: 1. Wean off oxygen. 2. Continue nebulizer treatment. 3. No need for continuing steroids. 4. Add oral antibiotics for 7 days. 5. The patient could be discharged home. 6. Followup CT chest in 6 months. Discussed with the patient's . TEETEE GIRALDO MD DR: DEA/kofi JOB#: [id number] / [id number]
== END 2017-03-21 14:54 | disposition home or self-care (01) | DRG 871 ==
LOC: ER 22:48 → 5 NORTH 03-21 01:33
PROVIDERS: ADMIT Internal Medicine; ATTEND Internal Medicine
DX: A41.9 Sepsis, unspecified organism (principal); J96.01 Acute respiratory failure with hypoxia; J44.0 Chronic obstructive pulmonary disease with (acute) lower respiratory infection; J44.1 Chronic obstructive pulmonary disease with (acute) exacerbation; F17.210 Nicotine dependence, cigarettes, uncomplicated; J20.9 Acute bronchitis, unspecified; M54.5 Low back pain; Z87.01 Personal history of pneumonia (recurrent)
CPT/HCPCS: 36415; 71010; 71275; 80048; 80076; 81001; 83605; 83690; 83880; 84484; 85007; 85025; 87086; 87804; 93005; 94250; 94640; 96361; 96374; 96375; J0696; J2930; J3490; J7030; J7040; J7620; Q9967; 99285-25

== ENCOUNTER → 2017-04-11 | Outpatient (CLI) | payer BC ==
[2017-03-21 10:30] VITALS: BP 150/52
[~2017-04-11] MED LIST changes: +BENZ100C PO; +DOXY100C2 PO; +METH4TAB2 PO
--- NOTE | 2017-04-11 16:03 | RAD ---
Renal ultrasound 04/11/2017 Indication: Possible left renal mass. Comparison study: CT of the chest, March 21, 2017. Discussion: The right kidney is normal appearance measuring 10.3 cm in length. Left kidney is normal appearance measuring 11.6 cm in length. No hydronephrosis, nephrolithiasis, or focal renal lesion is seen involving either kidney. The bladder is unremarkable in appearance. Impression: Unremarkable ultrasound appearance of the kidneys
== END | disposition home or self-care (01) ==
LOC: US 15:29
PROVIDERS: ATTEND Family Medicine
DX: N28.89 Other specified disorders of kidney and ureter (principal)
CPT/HCPCS: 76770

== ENCOUNTER → 2017-04-25 | Outpatient (CLI) | payer BC ==
[~2017-04-25] MED LIST changes: -AMOX1TAB61 PO; -BENZ100C PO; +CONTRAST GIVEN MC; -DOXY100C2 PO; -FLUT1DIS5 IH; -GUAI5SYR PO; -IPRA4AER IH; -LINE600T PO; -METH4TAB2 PO
[2017-04-25] MEDS: IOHEXOL 240 MG/ML 50ML VIAL. PO (09:48)
[2017-04-25] MEDS: IOHEXOL 300 MG/ML 100ML VIAL. IV (09:48)
== END | disposition home or self-care (01) ==
LOC: CT 07:50
DX: K57.30 Diverticulosis of large intestine without perforation or abscess without bleeding (principal); K76.0 Fatty (change of) liver, not elsewhere classified; J44.9 Chronic obstructive pulmonary disease, unspecified; R19.04 Left lower quadrant abdominal swelling, mass and lump; Z87.891 Personal history of nicotine dependence
CPT/HCPCS: 74178; Q9966; Q9967

== ENCOUNTER → 2017-12-15 | Day surgery (SDC) | payer BC ==
[~2017-12-15] MED LIST changes: +AMOX1TAB61 PO; +ATOR20TA58 PO; +BENZ100C PO; -CONTRAST GIVEN MC; +DEXT15DR5 EACHEYE; +DOXY100C2 PO; +FLUT1DIS5 IH; +GUAI5SYR PO; +IPRA4AER IH; +IV RINGERS,LACTATED 1000ML 1,000 ML IV SCH; +LATA2.5D3 EACHEYE; +LIDOCAINE 2% PF Vial for OR 5 ML VIAL. ONE; +LINE600T PO; +METH4TAB2 PO; +MULT1TAB52 PO; +PROPOFOL 20 ML IV ONE
[2017-12-15 08:00] VITALS: BP 173/74
--- NOTE | 2017-12-15 12:57 | CONS ---
DATE OF CONSULTATION: 12/15/2017 REASON FOR CONSULTATION: Possible cologuard. HISTORY OF PRESENT ILLNESS: A 67-year-old female with past medical history significant for eye surgery and hysterectomy, seen for a screening colon. Bowel habits are regular without diarrhea or constipation. There has been no melena and/or hematochezia. Weight and appetite are stable. There is no family history of colon polyps or colon cancer. She has not undergone previous screening studies. PAST MEDICAL HISTORY: Hyperlipidemia, osteoarthrosis, eye surgery and hysterectomy. ALLERGIES: SULFA and HYDROCODONE. MEDICATIONS: Include atorvastatin, eyedrops and multivitamins. SOCIAL HISTORY: She is a nondrinker, nonsmoker. FAMILY HISTORY: Noncontributory for colon polyps or colon cancer. REVIEW OF SYSTEMS: HEENT: There is a history of eye surgery. LUNGS: No history of shortness breath, productive cough, asthma. RENAL: No dysuria, frequency, hematuria. CARDIAC: No history of hypertension, palpitations, syncope. GASTROINTESTINAL: Please see history of present illness. DERMATOLOGIC: No skin rashes or pruritus. HEMATOLOGIC: No bleeding, bruising, coagulopathy. ENDOCRINE: History of hyperlipidemia. PHYSICAL EXAMINATION: GENERAL: Reveals a well-nourished, well-developed female. VITAL SIGNS: Temperature 97.4, pulse 91, respirations 20. HEENT: Reveals normocephalic, atraumatic head. Pupils and extraocular muscles are not tested. Sclerae anicteric. NECK: Supple. LUNGS: Clear. CARDIOVASCULAR: Reveals an S1, S2 without S3, S4 or appreciable murmur. ABDOMEN: Reveals soft abdomen, normoactive bowel sounds without appreciable hepatosplenomegaly, with infraumbilical hysterectomy incision. EXTREMITIES: Reveals no cyanosis, clubbing or edema. IMPRESSION: Colorectal screening with possible cologuard is recommended at this time. Risks and benefits have been discussed. The patient is willing to proceed. I would like to thank, Dr. Rodriguez, for allowing us to consult and participate in this patient's care. SUNDAY KONG MD DR: RIGOBERTO/kofi JOB#: [id number] / [id number] ecc JANINA RODRIGUEZ MD
--- NOTE | 2017-12-18 16:08 | PATHOLOGY ---
[facility] Accession Number: [id number] . 01 Material submitted: . RECTAL POLYP . 01 Clinical history: . Positive Cologuard . 02 Diagnosis: Colorectal biopsies, rectal polyp: - Tubular adenoma, measuring 0.7 cm. - Hyperplastic polyp. [facility]/12/18/2017 . 02 Comment: There is no high-grade dysplasia or evidence of malignancy. (JPM:[facility] 12/18/2017) . 02 Electronically signed: . Stanislaw Lucio MD, Pathologist NPI- [id number] . 01 Gross description: . Received in formalin labeled "Brian, Taina, rectal polyps," and additionally labeled on the requisition as "polyp," is a 0.6 0.6 x 0.4 cm polypoid piece of dukes soft tissue with a stalk measuring 0.3 cm in length and 0.4 cm in diameter. The margin of the stalk is inked and the specimen is sectioned perpendicular to the margin and entirely submitted in cassette A1. Additionally received in the same container is a single segment of dukes soft tissue measuring 0.4 cm in maximum dimension. The specimen is submitted entirely in cassette A1. ([facility]; 12/15/2017) TOB/TOB . 02 Pathologist provided ICD-10: D12.7, K62.1 . 02 CPT . 713412 Performed at: [facility] [address], [place] [id number] MD Linus Sibley MD Phone: [phone] Performed at: 02 [facility] [address] [place], [place] [id number] MD Stanislaw Lucio MD Phone: [phone]
== END | disposition home or self-care (01) ==
LOC: SURG 06:01
PROVIDERS: ATTEND Internal Medicine Gastroenterology
DX: D12.8 Benign neoplasm of rectum (principal); K63.5 Polyp of colon; K57.30 Diverticulosis of large intestine without perforation or abscess without bleeding; K64.0 First degree hemorrhoids; E78.5 Hyperlipidemia, unspecified; M19.90 Unspecified osteoarthritis, unspecified site; Z90.710 Acquired absence of both cervix and uterus; Z98.890 Other specified postprocedural states; Z88.0 Allergy status to penicillin; Z88.2 Allergy status to sulfonamides; Z88.5 Allergy status to narcotic agent; Z88.8 Allergy status to other drugs, medicaments and biological substances; Z79.899 Other long term (current) drug therapy
CPT/HCPCS: 45385; 88305; J2001; J2704; 45378

== ENCOUNTER → 2019-01-24 | Outpatient (CLI) | payer BC ==
[2017-12-15 08:00] VITALS: BP 173/74
[~2019-01-24] MED LIST changes: -IV RINGERS,LACTATED 1000ML 1,000 ML IV SCH; -LIDOCAINE 2% PF Vial for OR 5 ML VIAL. ONE; -LINE600T PO; +LINE600T12 PO; -PROPOFOL 20 ML IV ONE
--- NOTE | 2019-01-24 12:54 | KCIC ---
EXAM: Right knee, 3 views. HISTORY: Pain. COMPARISON: None. FINDINGS: 3 views of the right knee are obtained. There is medial compartment joint space narrowing with subchondral sclerosis, spurring and vacuum phenomenon. There is mild patellofemoral compartment spurring. There is slight enthesopathy along the superior patella. There is suspected bone demineralization. IMPRESSION: 1. Moderate medial compartment and mild patellofemoral compartment osteoarthritis of the right knee. 2. Bone demineralization. Electronically signed by: Bijal Elizabeth MD (01/24/2019 12:51 PM) [place] [id number]
--- NOTE | 2019-01-25 07:48 | KCIC ---
Bilateral digital screening mammograms with 3-D tomosymphysis: Reason for examination: Routine screening. New baseline. Bilateral mammograms in CC and oblique projections were obtained with 2-D imaging and 3-D tomosynthesis imaging on a Siemens Inspiration unit and reviewed on the workstation. Interpretation is made with the benefit of CAD. The skin and nipples show no abnormalities. No abnormal lymph nodes are seen. The breast parenchyma is predominantly fatty. (Breast density: Category A.) There appear to be faint nodules present in the 3:00 B position of the right breast and 12:00 B position of the left breast. Recommend further evaluation with ultrasound. There are no other dominant masses, suspicious calcifications or architectural distortions. Impression: Faint nodules at the 3:00 B position of the right breast and 12:00 B position of the left breast. Recommend further evaluation with ultrasound. BI-RADS Category 0: Incomplete. Needs additional imaging evaluation. "Our facility is accredited by the [employer] Mammography Program." This patient's information has been entered into a reminder system for the patient to be notified with the results of her examination and a target date for the next mammogram. Electronically signed by: Bozena Martin MD (01/25/2019 7:45 AM) [id number]
== END | disposition home or self-care (01) ==
LOC: KCIC MAMMO 11:05
PROVIDERS: ATTEND Family Medicine
DX: M81.8 Other osteoporosis without current pathological fracture (principal); M17.11 Unilateral primary osteoarthritis, right knee; Z12.31 Encounter for screening mammogram for malignant neoplasm of breast; N64.89 Other specified disorders of breast; M77.8 Other enthesopathies, not elsewhere classified
CPT/HCPCS: 73564; 77063; 77067

== ENCOUNTER → 2020-02-27 | Outpatient (CLI) | payer BC ==
[2017-12-15 08:00] VITALS: BP 173/74
[~2020-02-27] MED LIST changes: +MULT-445 PO; -MULT1TAB52 PO
--- NOTE | 2020-02-27 14:02 | KCIC ---
Bilateral diagnostic digital mammograms with 3-D tomosynthesis: Reason for examination: Follow-up nodules. Comparison is made to previous study dated 01/24/2019. Bilateral mammograms in CC and oblique projections were obtained with 2-D imaging and 3-D tomosynthesis imaging on a Siemens Inspiration unit and reviewed on the workstation. Interpretation was made with the benefit of CAD. The skin and nipples show no abnormalities. No abnormal axillary lymph nodes are seen. The breast parenchyma shows scattered fatty and fibroglandular density. (Breast density: Category B.) There appears to be a faint nodule present in the central 3:00 B position of the right breast which appears to be stable. There is a small circumscribed nodule which appears to 12:00 position of the left breast which shows a slight increase in size. There are no new dominant masses, suspicious calcifications or architectural distortion. Impression: Stable nodule centrally at the 3:00 B position of the right breast. Recommend routine follow-up. Slight increase in size of the small nodule at the 12:00 B position of the left breast. Ultrasound to follow. BI-RADS Category 0: Incomplete. Needs additional imaging evaluation. Bilateral breast ultrasound: Ultrasound examination was performed bilaterally in the areas of mammographic concern and at the axilla. In the right breast, a discrete cystic or solid nodule is not seen. This may represent lipoma considering subtle appearance mammographically. Since this appears to be stable for 1 year, routine follow-up is recommended. No abnormal appearing lymph nodes are seen in the right axilla. In the left breast at the 12:00 position 8 cm from the nipple, there is a small elongated 7.1 mm nodule with slight lobulation to the margins. Further evaluation with ultrasound-guided biopsy is recommended. No other cystic or solid nodules are seen. No abnormal appearing lymph nodes are seen in the left axilla. IMPRESSION: No suspicious abnormality seen in the right breast sonographically. 7.1 mm nodule at the 12:00 position of the left breast 8 cm from the nipple. Recommend ultrasound-guided biopsy. BI-RADS Category 4: Suspicious. These findings have been discussed with the patient and the patient's physician's medical assistant supervisor was notified about these findings via a message left on available [employer] machine on 02/27/2020 at 1358. "Our facility is accredited by the [employer] Mammography Program." This patient's information has been entered into a reminder system for the patient to be notified with the results of her examination and a target date for the next mammogram. This patient's information has been entered into a reminder system for the patient to be notified with the results of her examination and a target date for the next mammogram. Electronically signed by: Bozena Martin MD (02/27/2020 1:59 PM) [email or web address]
== END ==
LOC: KCIC MAMMO 07:51
PROVIDERS: ATTEND Family Medicine
DX: N63.22 Unspecified lump in the left breast, upper inner quadrant (principal); N63.12 Unspecified lump in the right breast, upper inner quadrant
CPT/HCPCS: 76641; 77066; G0279; 77062

== ENCOUNTER → 2020-04-01 | Outpatient (CLI) | payer BC ==
[2017-12-15 08:00] VITALS: BP 173/74
--- NOTE | 2020-04-01 15:33 | RAD ---
Examination: DIGITAL DIAGNOSTIC LT, US GUID NDL PLACE/ASPI/BX History: Reason: ABNORMAL LEFT MAMMOGRAM/POST BIOPSY CLIP PLACEMENT / Spl. Instructions: / History: Comparison/Correlation: 02/27/2020 Bilateral diagnostic mammogram and bilateral breast ultrasound Findings: Risks, benefits, and alternatives regarding left breast ultrasound-guided core needle biopsy of the 12 o'clock position 8 cm from the nipple were discussed with the patient and informed consent was obtained. Cleansing with ChloraPrep at the anticipated site of needle placement was performed. Sterile draping, sterile gel, and sterile probe cover is were utilized. Approximately 8 cc of 1 percent lidocaine was administered subcutaneously and along the expected course of the needle tracks. Lateral approach was utilized. Scalpel incision was made. 12-gauge introducer was placed. A total of 5 samples were acquired with a 12-gauge needle and placed in the formalin jar. Sample sizes are small. Biopsy clip marker was then placed via the introducer. Lateral medial and CC images of the left breast were acquired. Scattered periventricular densities noted. Biopsy clip marker is present at the left upper breast 12:00 region. No hematoma. The patient tolerated the procedure well without immediate complications. Impression: Successful biopsy of the left breast 12:00 mass. Electronically signed by: Dougie Boston MD (04/01/2020 3:30 PM) [email or web address]
== END | disposition home or self-care (01) ==
LOC: US 13:00
PROVIDERS: ATTEND Surgery
DX: N63.21 Unspecified lump in the left breast, upper outer quadrant (principal); R92.8 Other abnormal and inconclusive findings on diagnostic imaging of breast; E78.00 Pure hypercholesterolemia, unspecified; J44.9 Chronic obstructive pulmonary disease, unspecified; M19.90 Unspecified osteoarthritis, unspecified site; F17.210 Nicotine dependence, cigarettes, uncomplicated; Z85.828 Personal history of other malignant neoplasm of skin; Z90.710 Acquired absence of both cervix and uterus; Z98.890 Other specified postprocedural states; Z72.89 Other problems related to lifestyle; Z88.0 Allergy status to penicillin; Z88.1 Allergy status to other antibiotic agents; Z88.2 Allergy status to sulfonamides; Z88.8 Allergy status to other drugs, medicaments and biological substances
CPT/HCPCS: 19083; 77065; 88305; C1713; 19081; 76098; 76942

== ENCOUNTER → 2021-09-14 | Outpatient (CLI) | payer BC ==
[2021-03-18 15:00] VITALS: BP 163/65
[~2021-09-14] MED LIST changes: +AMLO-186 PO; -DOXY100C2 PO; +DOXY100C3 PO; +IPRA4AER INH; +METF500T16 PO; +METO25TA4 PO
--- NOTE | 2021-09-14 15:02 | RAD ---
PROCEDURE: MG DIGITAL BILAT DIAGNOSTIC MAMMO WITH LIOR HISTORY: The patient is 71 years old and is seen for Reason: 6 MO FU LATE / Spl. Instructions: / His tory: . COMPARISON: April 01, 2020 and February TECHNIQUE: CC and MLO views of both breasts were obtained. Images were processed by the [employer] computer-aided detection system. Additional CC compression views on the left DENSITY: There are scattered fibroglandular densities. FINDINGS: Left mammogram: Asymmetry within the left outer breast on the CC image. Spot compression views were o btained. The asymmetry is less apparent on spot compression views, likely overlapping fibroglandular tissue. The biopsy marker noted within the left superior breast. No suspicious microcatheter dictatio n architectural distortion. Right mammogram: No suspicious microcalcifications, mass or architectural distortion. IMPRESSION: Asymmetry within the left outer breast less apparent on spot compression views, likely ov erlapping fibroglandular tissue. Recommend continued annual screening mammograms. Recommend annual screening mammograms per [employer] guidelines. She will be due in one year. BI-RADS category 2 Benign Patient entered into a reminder system for annual screening mammogram. Electronically signed by: Brian Hector DO (09/14/2021 2:59 PM) [email or web address]
== END ==
LOC: MAMMO 13:36
PROVIDERS: ATTEND Family Medicine
DX: Z09 Encounter for follow-up examination after completed treatment for conditions other than malignant neoplasm (principal)
CPT/HCPCS: 77066; G0279; 77062